=== PATIENT | female | born 1955 | race African-American/Black ===

== ENCOUNTER 2016-09-21 16:09 | Emergency (ER) | payer MEDICARE ==
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
[2016-09-21 17:38] VITALS: BP 120/70
== END 2016-09-21 17:51 | disposition home or self-care (01) ==
LOC: JP.ED 16:09
DX: R07.89 Other chest pain (principal); R42 Dizziness and giddiness; I10 Essential (primary) hypertension; J45.909 Unspecified asthma, uncomplicated; K21.9 Gastro-esophageal reflux disease without esophagitis; F41.9 Anxiety disorder, unspecified; E03.9 Hypothyroidism, unspecified; Z90.49 Acquired absence of other specified parts of digestive tract; Z90.710 Acquired absence of both cervix and uterus; Z79.899 Other long term (current) drug therapy; Z91.010 Allergy to peanuts; Z88.1 Allergy status to other antibiotic agents
CPT/HCPCS: 36415; 80053; 84484; 85025; 93005; 93010; 99284; 99285-25

== ENCOUNTER 2017-09-25 12:24 | Emergency (ER) | payer OTHER ==
[2017-09-25 12:40] VITALS: BP 159/96
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
== END 2017-09-25 13:10 | disposition home or self-care (01) ==
LOC: JP.ED 12:24
DX: K04.7 Periapical abscess without sinus (principal); K02.9 Dental caries, unspecified; I10 Essential (primary) hypertension; E03.9 Hypothyroidism, unspecified; Z88.1 Allergy status to other antibiotic agents; Z91.010 Allergy to peanuts; Z79.899 Other long term (current) drug therapy; Z87.891 Personal history of nicotine dependence
CPT/HCPCS: 99283

== ENCOUNTER 2017-12-24 12:16 | Observation (INO) | payer OTHER ==
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
[2017-12-24] MEDS ORDERED: Albuterol 0.083% 2.5 MG/3 ML Neb Soln NEB ONE (14:53)
[2017-12-24] MEDS ORDERED: Iopamidol 612 MG/ML 100 ML Bottle IV PRN (15:58)
[2017-12-24] MEDS ORDERED: Sodium Chloride 0.9% 10 ML Syringe FLUSH SCH (16:00)
[2017-12-24] MEDS ORDERED: methylPREDNISolone Sodium Succinate 125 MG/2 ML SDV IVPUSH ONE (18:18)
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
[2017-12-24] MEDS ORDERED: Acetaminophen/HYDROcodone 325-10 MG Tab PO PRN (19:40)
[2017-12-24] MEDS ORDERED: Acetaminophen 325 MG Tab PO PRN (19:40)
[2017-12-24] MEDS ORDERED: Ondansetron 4 MG/2 ML SDV IV PRN (19:40)
[2017-12-24] MEDS ORDERED: Sodium Chloride 0.9% 10 ML Syringe FLUSH PRN (19:40)
[2017-12-24] MEDS ORDERED: THEOPHYLLINE 400 MG PO SCH (19:40)
[2017-12-24] MEDS ORDERED: Albuterol 8 GM Inhaler INH PRN (19:40)
[2017-12-24] MEDS ORDERED: Albuterol 0.083% 2.5 MG/3 ML Neb Soln NEB PRN (19:40)
[2017-12-24] MEDS ORDERED: Levofloxacin/Dextrose 5%-Water 750 MG in Premix Bag 1 BAG IV SCH (20:00)
[2017-12-24] MEDS: Pantoprazole 40 MG Tab.CR PO SCH (20:17)
[2017-12-24] MEDS: Sodium Chloride 0.9% 1,000 ML IV SCH (20:17)
[2017-12-24] MEDS: ClonazePAM 0.5 MG Tab PO SCH (20:17)
[2017-12-24] MEDS: Cetirizine 10 MG Tab PO SCH (20:17)
[2017-12-24] MEDS: Lidocaine 5% 700 MG Patch TOP SCH (20:19)
[2017-12-24] MEDS: Losartan 50 MG Tab PO SCH (20:20)
[2017-12-24] MEDS: rOPINIRole 1 MG Tab PO SCH (21:08)
[2017-12-24] MEDS: Montelukast 10 MG Tab PO SCH (21:08)
[2017-12-24] MEDS: traZODone 50 MG Tab PO SCH (21:08)
[2017-12-24] MEDS: methylPREDNISolone Sodium Succinate 40 MG/1 ML SDV IVPUSH SCH (23:14)
[2017-12-25] MEDS: Sodium Chloride 0.9% 1,000 ML IV SCH (05:35)
[2017-12-25] MEDS ORDERED: Levothyroxine 50 MCG Tab PO SCH (07:30)
--- NOTE | 2017-12-25 08:28 | CR ---
CHEST: 2 view CLINICAL HISTORY:Hemoptysis COMPARISON:2016 FINDINGS: There is patchy density in the right lower lobe. Some of this is present on the prior stud y from 2016. There is mild fullness of the right hilum also unchanged from prior study. No effusion o r pneumothorax is seen. There are atherosclerotic changes in the aorta.. IMPRESSION: Patchy right lower lobe airspace disease similar to 2016. This may represent scarring an d atelectasis. Recurrent infiltrate is not excluded
[2017-12-25] MEDS: Sertraline 50 MG Tab PO SCH (08:45)
[2017-12-25] MEDS: Spironolactone 25 MG Tab PO SCH (08:45)
[2017-12-25] MEDS: Losartan 50 MG Tab PO SCH ×2 (08:45→22:09)
[2017-12-25] MEDS: Theophylline 100 MG Cap.ER PO SCH ×2 (08:45→22:14)
[2017-12-25] MEDS: Cetirizine 10 MG Tab PO SCH (08:45)
[2017-12-25] MEDS: Theophylline 300 MG Tab.ER PO SCH ×2 (08:45→22:15)
[2017-12-25] MEDS: methylPREDNISolone Sodium Succinate 40 MG/1 ML SDV IVPUSH SCH ×3 (08:46→22:14)
[2017-12-25] MEDS: Levothyroxine 100 MCG, Levothyroxine 25 MCG PO SCH ×2 (08:46)
[2017-12-25] MEDS: REMOVE LIDOCAINE TRDERM SCH (08:57)
[2017-12-25] MEDS: ClonazePAM 0.5 MG Tab PO SCH (08:57)
--- NOTE | 2017-12-25 13:06 | PCM.PN ---
- General Info Date of Service: 12/25/17 Admission Dx/Problem (Free Text): RT lung pneumonia Subjective Update: Pt c/o of being tired and short of breath but states that she feels she has improved since admit. Pt states coughing is less and has less difficulty breathing. Pt remains afebrile and is not using supplemental O2 at this time. Pt is up in chair and has moved about her room but has not been up ambulating in the white. Functional Status: Reports: Pain Controlled, Tolerating Diet Pain Score: 0 - Review of Systems General: Reports: Weakness, Fatigue. Denies: Fever, Chills HEENT: Reports: No Symptoms Pulmonary: Reports: Shortness of Breath, Cough Cardiovascular: Reports: No Symptoms Gastrointestinal: Reports: No Symptoms Genitourinary: Reports: No Symptoms Musculoskeletal: Reports: No Symptoms Skin: Reports: No Symptoms Neurological: Reports: No Symptoms Psychiatric: Reports: No Symptoms - Patient Data Vitals - Most Recent: Last Vital Signs Temp 35.6 C 12/25/17 11:00 Pulse 71 12/25/17 11:00 Resp 18 12/25/17 11:00 BP 166/84 H 12/25/17 11:00 Pulse Ox 93 L 12/25/17 11:00 Weight - Most Recent: 80 kg I&O - Last 24 Hours: Intake & Output 12/24/17 12/25/17 12/25/17 22:59 06:59 14:59 Intake Total 1104 Output Total 138 541 0617 Balance -225 704 -1000 Lab Results Last 24 Hours: Laboratory Results - last 24 hr 12/24/17 12/24/17 12/24/17 Range/Units 14:56 14:56 15:13 WBC 7.8 (4.5-11.0) K/uL RBC 4.76 (3.30-5.50) M/uL Hgb 12.8 (12.0-15.0) g/dL Hct 40.7 (36.0-48.0) % MCV 86 (80-98) fL MCH 27 (27-31) pg MCHC 31 L (32-36) % Plt Count 188 (150-400) K/uL Neut % (Auto) 63 (36-66) % Lymph % (Auto) 29 (24-44) % Jackson % (Auto) 7 H (2-6) % Eos % (Auto) 1 L (2-4) % Baso % (Auto) 0 (0-1) % Sodium 143 (140-148) mmol/L Potassium 3.7 (3.6-5.2) mmol/L Chloride 104 (100-108) mmol/L Carbon Dioxide 30 (21-32) mmol/L Anion Gap 9.0 (5.0-14.0) mmol/L BUN 9 (7-18) mg/dL Creatinine 1.1 H (0.6-1.0) mg/dL Est Cr Clr Drug Dosing 41.40 mL/min Estimated GFR (MDRD) > 60 (>60) Glucose 90 (74-106) mg/dL Calcium 9.1 (8.5-10.1) mg/dL Total Bilirubin 0.4 (0.2-1.0) mg/dL AST 26 (15-37) U/L ALT 50 (12-78) U/L Alkaline Phosphatase 96 (46-116) U/L C-Reactive Protein 4.99 H (0.0-0.3) mg/dL Total Protein 7.7 (6.4-8.2) g/dL Albumin 3.4 (3.4-5.0) g/dL Globulin 4.3 H (2.3-3.5) g/dL Albumin/Globulin Ratio 0.8 L (1.2-2.2) Urine Color Urine Appearance Urine pH (4.5-8.0) Ur Specific P[place]all (1.008-1.030) Urine Protein (NEGATIVE) mg/dL Urine Glucose (UA) (NEGATIVE) mg/dL Urine Ketones (NEGATIVE) mg/dL Urine Occult Blood (NEGATIVE) Urine Nitrite (NEGATIVE) Urine Bilirubin (NEGATIVE) Urine Urobilinogen (NORMAL) mg/dL Ur Leukocyte Esterase (NEGATIVE) Urine RBC (0-5) Urine WBC (0-5) Ur Epithelial Cells Amorphous Sediment Urine Bacteria Urine Mucus Theophylline (10-20.0) ug/mL 12/24/17 12/25/17 12/25/17 Range/Units 20:10 05:00 05:00 WBC 5.8 (4.5-11.0) K/uL RBC 4.81 (3.30-5.50) M/uL Hgb 13.1 (12.0-15.0) g/dL Hct 41.1 (36.0-48.0) % MCV 85 (80-98) fL MCH 27 (27-31) pg MCHC 32 (32-36) % Plt Count 193 (150-400) K/uL Neut % (Auto) 87 H (36-66) % Lymph % (Auto) 13 L (24-44) % Jackson % (Auto) 1 L (2-6) % Eos % (Auto) 0 L (2-4) % Baso % (Auto) 0 (0-1) % Sodium 144 (140-148) mmol/L Potassium 3.9 (3.6-5.2) mmol/L Chloride 108 (100-108) mmol/L Carbon Dioxide 26 (21-32) mmol/L Anion Gap 9.6 (5.0-14.0) mmol/L BUN 10 (7-18) mg/dL Creatinine 1.1 H (0.6-1.0) mg/dL Est Cr Clr Drug Dosing 41.40 mL/min Estimated GFR (MDRD) > 60 (>60) Glucose 153 H (74-106) mg/dL Calcium 9.6 (8.5-10.1) mg/dL Total Bilirubin (0.2-1.0) mg/dL AST (15-37) U/L ALT (12-78) U/L Alkaline Phosphatase (46-116) U/L C-Reactive Protein (0.0-0.3) mg/dL Total Protein (6.4-8.2) g/dL Albumin (3.4-5.0) g/dL Globulin (2.3-3.5) g/dL Albumin/Globulin Ratio (1.2-2.2) Urine Color Yellow Urine Appearance Clear Urine pH 5.0 (4.5-8.0) Ur Specific [place] 1.005 L (1.008-1.030) Urine Protein Negative (NEGATIVE) mg/dL Urine Glucose (UA) Normal (NEGATIVE) mg/dL Urine Ketones Negative (NEGATIVE) mg/dL Urine Occult Blood Negative (NEGATIVE) Urine Nitrite Negative (NEGATIVE) Urine Bilirubin Small (NEGATIVE) Urine Urobilinogen 1 (NORMAL) mg/dL Ur Leukocyte Esterase Moderate (NEGATIVE) Urine RBC 0-5 (0-5) Urine WBC 0-5 (0-5) Ur Epithelial Cells Rare Amorphous Sediment Not seen Urine Bacteria Not seen Urine Mucus Not seen Theophylline 2.0 L (10-20.0) ug/mL Brian Results Last 24 Hours: Microbiology 12/24/17 16:50 Gram Stain - Final Nasopharynx, Unspecified Med Orders - Current: Current Medications Acetaminophen (Tylenol) 650 mg PO Q4H PRN PRN Reason: Pain (Mild 1-3)/fever Last Admin: 12/25/17 07:53 Dose: 650 mg Hydrocodone Bitart/Acetaminophen (Blackwell 325-10 Mg) 1 tab PO Q4H PRN PRN Reason: Pain Albuterol (Ventolin Hfa) 0 gm INH Q4H PRN PRN Reason: Shortness of Breath Albuterol (Proventil Neb Soln) 2.5 mg NEB Q4H PRN PRN Reason: Shortness Of Breath/wheezing Last Admin: 12/24/17 20:30 Dose: 2.5 mg Cetirizine HCl (Zyrtec) 10 mg PO DAILY [facility] Last Admin: 12/25/17 08:45 Dose: 10 mg Clonazepam (Klonopin) 0.5 mg PO BID [facility] Last Admin: 12/25/17 08:57 Dose: 0.5 mg Sodium Chloride (Normal Saline) 1,000 mls @ 125 mls/hr IV ASDIRECTED [facility] Last Admin: 12/25/17 05:35 Dose: 125 mls/hr Levofloxacin/Dextrose 750 mg/ (Premix) 150 mls @ 100 mls/hr IV Q24H [facility] Levothyroxine Sodium 100 mcg/ (Levothyroxine Sodium 25 mcg) 125 mcg PO ACBREAKFAST [facility] Last Admin: 12/25/17 08:46 Dose: 125 mcg Lidocaine (Lidoderm 5%) 700 mg TOP Q24H [facility] Last Admin: 12/24/17 20:19 Dose: 700 mg Losartan Potassium (Cozaar) 50 mg PO BID [facility] Last Admin: 12/25/17 08:45 Dose: 50 mg Methylprednisolone Sodium Succinate (Solu-Medrol) 40 mg IVPUSH Q8H [facility] Last Admin: 12/25/17 08:46 Dose: 40 mg Miscellaneous Information (Remove Patch) 1 ea TRDERM Q24H [facility] Last Admin: 12/25/17 08:57 Dose: Not Given Montelukast Sodium (Singulair) 10 mg PO BEDTIME [facility] Last Admin: 12/24/17 21:08 Dose: 10 mg Ondansetron HCl (Zofran) 4 mg IV Q4H PRN PRN Reason: Nausea/Vomiting Pantoprazole Sodium (Protonix) 40 mg PO BEDTIME [facility] Last Admin: 12/24/17 20:17 Dose: 40 mg Ropinirole HCl (Requip) 2 mg PO BEDTIME [facility] Last Admin: 12/24/17 21:08 Dose: 2 mg Sertraline HCl (Zoloft) 100 mg PO DAILY [facility] Last Admin: 12/25/17 08:45 Dose: 100 mg Sodium Chloride (Saline Flush) 10 ml FLUSH ASDIRECTED PRN PRN Reason: Keep Vein Open Spironolactone (Aldactone) 25 mg PO DAILY [facility] Last Admin: 12/25/17 08:45 Dose: 25 mg Theophylline (Theophylline Anhydrous) 300 mg PO Q12H [facility] Last Admin: 12/25/17 08:45 Dose: 300 mg Theophylline (Tor-24) 100 mg PO Q12H [facility] Last Admin: 12/25/17 08:45 Dose: 100 mg Trazodone HCl (Trazodone) 200 mg PO BEDTIME [facility] Last Admin: 12/24/17 21:08 Dose: 200 mg Discontinued Medications Albuterol (Proventil Neb Soln) 2.5 mg NEB ONETIME ONE Stop: 12/24/17 14:54 Last Admin: 12/24/17 15:03 Dose: 2.5 mg Sodium Chloride (Normal Saline) 70 mls @ 3 mls/sec IV ASDIRECTED [facility] Stop: 12/24/17 16:01 Last Admin: 12/24/17 16:32 Dose: 3 mls/sec Levofloxacin/Dextrose 750 mg/ (Premix) 150 mls @ 100 mls/hr IV Q48H [facility] Last Admin: 12/24/17 19:03 Dose: 100 mls/hr Iopamidol (Isovue-300 (61%)) 100 ml IV . DIRECTED PRN PRN Reason: RADIOLOGY EXAM Stop: 12/24/17 15:59 Last Admin: 12/24/17 16:32 Dose: 100 ml Levothyroxine Sodium (Synthroid) 125 mcg PO ACBRK [facility] Methylprednisolone Sodium Succinate (Solu-Medrol) 125 mg IVPUSH ONETIME ONE Stop: 12/24/17 18:19 Last Admin: 12/24/17 18:55 Dose: 125 mg Non-Formulary Medication (Theophylline [Theophylline]) 400 mg PO Q12H [facility] Last Admin: 12/25/17 11:33 Dose: Not Given Sodium Chloride (Saline Flush) 10 ml FLUSH ONETIME [facility] Stop: 12/24/17 16:01 Last Admin: 12/24/17 16:31 Dose: 10 ml Trazodone HCl (Trazodone Hcl) 200 mg PO BEDTIME [facility] - Exam General: Alert, Oriented, Cooperative, No Acute Distress Lungs: Decreased Breath Sounds Cardiovascular: Regular Rate, No Murmurs GI/Abdominal Exam: Normal Bowel Sounds, Soft, Non-Tender, No Distention Skin: Warm, Dry, Intact Psy/Mental Status: Alert, Normal Affect - Problem List Review Problem List Initiated/Reviewed/Updated: Yes - Plan Plan:: ASSESSMENT AND PLAN RIGHT LUNG PNEUMONIA-small infiltrate identified on CT scan of the chest, associated with borderline hypoxia and hemoptysis. -Supplemental oxygen as needed -Nebulized albuterol -Blood and sputum cultures pending -Solu-Medrol 40 mg IV every 8 hours -Levofloxacin 750 mg IV every 24 hours SPLENIC LESIONS-areas in the spleen identified on CT scan, review spleen noted on previous CT scan approximately a year and a half ago. -Will require further evaluation but can be obtained on an outpatient basis after pneumonia has resolved -Previous CT scan requested for radiologist to review MAINTENANCE ISSUES -DVT prophylaxis; SCUDs, hold on anticoagulation because of hemoptysis -GI prophylaxis; continue outpatient PPI therapy -Obando catheter; not indicated -Nutrition; regular diet -Nicotine dependence; not required CODE STATUS-FULL CODE ADMISSION STATUS-this patient will be admitted to observation status, expect no more than a one night hospital stay for evaluation and management of problems as outlined above. DISPOSITION-anticipate discharge to home after the hospital stay. PRIMARY CARE PROVIDER-Sammie Payne
--- NOTE | 2017-12-25 14:22 | PCM.PN ---
- General Info Date of Service: 12/25/17 Subjective Update: This patient has felt improved over the past 18 hours since admission with less shortness of breath and cough. Continues to have some intermittent wheezing, no further episodes of hemoptysis. She currently is on room air, not requiring supplemental oxygen. Vital signs have been stable and she has remained afebrile. Functional Status: Reports: Tolerating Diet, Urinating - Review of Systems General: Reports: Weakness. Denies: Fever, Chills Pulmonary: Reports: Shortness of Breath, Cough, Wheezing. Denies: Pleuritic Chest Pain, Sputum, Hemoptysis Cardiovascular: Reports: Dyspnea on Exertion. Denies: Chest Pain, Palpitations , Orthopnea, PND Gastrointestinal: Reports: No Symptoms - Patient Data Vitals - Most Recent: Last Vital Signs Temp 96.0 F 12/25/17 11:00 Pulse 71 12/25/17 11:00 Resp 18 12/25/17 11:00 BP 166/84 H 12/25/17 11:00 Pulse Ox 93 L 12/25/17 11:00 Weight - Most Recent: 176 lb 5.917 oz I&O - Last 24 Hours: Intake & Output 12/24/17 12/25/17 12/25/17 22:59 06:59 14:59 Intake Total 1104 840 Output Total 654 879 2539 Balance -225 704 -160 Lab Results Last 24 Hours: Laboratory Results - last 24 hr 12/24/17 12/24/17 12/24/17 Range/Units 14:56 14:56 15:13 WBC 7.8 (4.5-11.0) K/uL RBC 4.76 (3.30-5.50) M/uL Hgb 12.8 (12.0-15.0) g/dL Hct 40.7 (36.0-48.0) % MCV 86 (80-98) fL MCH 27 (27-31) pg MCHC 31 L (32-36) % Plt Count 188 (150-400) K/uL Neut % (Auto) 63 (36-66) % Lymph % (Auto) 29 (24-44) % Villalba % (Auto) 7 H (2-6) % Eos % (Auto) 1 L (2-4) % Baso % (Auto) 0 (0-1) % Sodium 143 (140-148) mmol/L Potassium 3.7 (3.6-5.2) mmol/L Chloride 104 (100-108) mmol/L Carbon Dioxide 30 (21-32) mmol/L Anion Gap 9.0 (5.0-14.0) mmol/L BUN 9 (7-18) mg/dL Creatinine 1.1 H (0.6-1.0) mg/dL Est Cr Clr Drug Dosing 41.40 mL/min Estimated GFR (MDRD) > 60 (>60) Glucose 90 (74-106) mg/dL Calcium 9.1 (8.5-10.1) mg/dL Total Bilirubin 0.4 (0.2-1.0) mg/dL AST 26 (15-37) U/L ALT 50 (12-78) U/L Alkaline Phosphatase 96 (46-116) U/L C-Reactive Protein 4.99 H (0.0-0.3) mg/dL Total Protein 7.7 (6.4-8.2) g/dL Albumin 3.4 (3.4-5.0) g/dL Globulin 4.3 H (2.3-3.5) g/dL Albumin/Globulin Ratio 0.8 L (1.2-2.2) Urine Color Urine Appearance Urine pH (4.5-8.0) Ur Specific [place] (1.008-1.030) Urine Protein (NEGATIVE) mg/dL Urine Glucose (UA) (NEGATIVE) mg/dL Urine Ketones (NEGATIVE) mg/dL Urine Occult Blood (NEGATIVE) Urine Nitrite (NEGATIVE) Urine Bilirubin (NEGATIVE) Urine Urobilinogen (NORMAL) mg/dL Ur Leukocyte Esterase (NEGATIVE) Urine RBC (0-5) Urine WBC (0-5) Ur Epithelial Cells Amorphous Sediment Urine Bacteria Urine Mucus Theophylline (10-20.0) ug/mL 12/24/17 12/25/17 12/25/17 Range/Units 20:10 05:00 05:00 WBC 5.8 (4.5-11.0) K/uL RBC 4.81 (3.30-5.50) M/uL Hgb 13.1 (12.0-15.0) g/dL Hct 41.1 (36.0-48.0) % MCV 85 (80-98) fL MCH 27 (27-31) pg MCHC 32 (32-36) % Plt Count 193 (150-400) K/uL Neut % (Auto) 87 H (36-66) % Lymph % (Auto) 13 L (24-44) % Villalba % (Auto) 1 L (2-6) % Eos % (Auto) 0 L (2-4) % Baso % (Auto) 0 (0-1) % Sodium 144 (140-148) mmol/L Potassium 3.9 (3.6-5.2) mmol/L Chloride 108 (100-108) mmol/L Carbon Dioxide 26 (21-32) mmol/L Anion Gap 9.6 (5.0-14.0) mmol/L BUN 10 (7-18) mg/dL Creatinine 1.1 H (0.6-1.0) mg/dL Est Cr Clr Drug Dosing 41.40 mL/min Estimated GFR (MDRD) > 60 (>60) Glucose 153 H (74-106) mg/dL Calcium 9.6 (8.5-10.1) mg/dL Total Bilirubin (0.2-1.0) mg/dL AST (15-37) U/L ALT (12-78) U/L Alkaline Phosphatase (46-116) U/L C-Reactive Protein (0.0-0.3) mg/dL Total Protein (6.4-8.2) g/dL Albumin (3.4-5.0) g/dL Globulin (2.3-3.5) g/dL Albumin/Globulin Ratio (1.2-2.2) Urine Color Yellow Urine Appearance Clear Urine pH 5.0 (4.5-8.0) Ur Specific [place] 1.005 L (1.008-1.030) Urine Protein Negative (NEGATIVE) mg/dL Urine Glucose (UA) Normal (NEGATIVE) mg/dL Urine Ketones Negative (NEGATIVE) mg/dL Urine Occult Blood Negative (NEGATIVE) Urine Nitrite Negative (NEGATIVE) Urine Bilirubin Small (NEGATIVE) Urine Urobilinogen 1 (NORMAL) mg/dL Ur Leukocyte Esterase Moderate (NEGATIVE) Urine RBC 0-5 (0-5) Urine WBC 0-5 (0-5) Ur Epithelial Cells Rare Amorphous Sediment Not seen Urine Bacteria Not seen Urine Mucus Not seen Theophylline 2.0 L (10-20.0) ug/mL Brian Results Last 24 Hours: Microbiology 12/24/17 16:50 Gram Stain - Final Nasopharynx, Unspecified Med Orders - Current: Current Medications Acetaminophen (Tylenol) 650 mg PO Q4H PRN PRN Reason: Pain (Mild 1-3)/fever Last Admin: 12/25/17 07:53 Dose: 650 mg Hydrocodone Bitart/Acetaminophen ([place] 325-10 Mg) 1 tab PO Q4H PRN PRN Reason: Pain Last Admin: 12/25/17 13:43 Dose: 1 tab Albuterol (Ventolin Hfa) 0 gm INH Q4H PRN PRN Reason: Shortness of Breath Albuterol (Proventil Neb Soln) 2.5 mg NEB Q4H PRN PRN Reason: Shortness Of Breath/wheezing Last Admin: 12/24/17 20:30 Dose: 2.5 mg Cetirizine HCl (Zyrtec) 10 mg PO DAILY [facility] Last Admin: 12/25/17 08:45 Dose: 10 mg Clonazepam (Klonopin) 0.5 mg PO BID [facility] Last Admin: 12/25/17 08:57 Dose: 0.5 mg Levofloxacin/Dextrose 750 mg/ (Premix) 150 mls @ 100 mls/hr IV Q24H [facility] Levothyroxine Sodium 100 mcg/ (Levothyroxine Sodium 25 mcg) 125 mcg PO ACBREAKFAST [facility] Last Admin: 12/25/17 08:46 Dose: 125 mcg Lidocaine (Lidoderm 5%) 700 mg TOP Q24H [facility] Last Admin: 12/24/17 20:19 Dose: 700 mg Losartan Potassium (Cozaar) 50 mg PO BID [facility] Last Admin: 12/25/17 08:45 Dose: 50 mg Methylprednisolone Sodium Succinate (Solu-Medrol) 40 mg IVPUSH Q8H [facility] Last Admin: 12/25/17 08:46 Dose: 40 mg Miscellaneous Information (Remove Patch) 1 ea TRDERM Q24H [facility] Last Admin: 12/25/17 08:57 Dose: Not Given Montelukast Sodium (Singulair) 10 mg PO BEDTIME [facility] Last Admin: 12/24/17 21:08 Dose: 10 mg Ondansetron HCl (Zofran) 4 mg IV Q4H PRN PRN Reason: Nausea/Vomiting Pantoprazole Sodium (Protonix) 40 mg PO BEDTIME [facility] Last Admin: 12/24/17 20:17 Dose: 40 mg Ropinirole HCl (Requip) 2 mg PO BEDTIME [facility] Last Admin: 12/24/17 21:08 Dose: 2 mg Sertraline HCl (Zoloft) 100 mg PO DAILY [facility] Last Admin: 12/25/17 08:45 Dose: 100 mg Sodium Chloride (Saline Flush) 10 ml FLUSH ASDIRECTED PRN PRN Reason: Keep Vein Open Spironolactone (Aldactone) 25 mg PO DAILY [facility] Last Admin: 12/25/17 08:45 Dose: 25 mg Theophylline (Theophylline Anhydrous) 300 mg PO Q12H [facility] Last Admin: 12/25/17 08:45 Dose: 300 mg Theophylline (Tor-24) 100 mg PO Q12H [facility] Last Admin: 12/25/17 08:45 Dose: 100 mg Trazodone HCl (Trazodone) 200 mg PO BEDTIME [facility] Last Admin: 12/24/17 21:08 Dose: 200 mg Discontinued Medications Albuterol (Proventil Neb Soln) 2.5 mg NEB ONETIME ONE Stop: 12/24/17 14:54 Last Admin: 12/24/17 15:03 Dose: 2.5 mg Sodium Chloride (Normal Saline) 70 mls @ 3 mls/sec IV ASDIRECTED [facility] Stop: 12/24/17 16:01 Last Admin: 12/24/17 16:32 Dose: 3 mls/sec Levofloxacin/Dextrose 750 mg/ (Premix) 150 mls @ 100 mls/hr IV Q48H [facility] Last Admin: 12/24/17 19:03 Dose: 100 mls/hr Sodium Chloride (Normal Saline) 1,000 mls @ 125 mls/hr IV ASDIRECTED [facility] Last Admin: 12/25/17 05:35 Dose: 125 mls/hr Iopamidol (Isovue-300 (61%)) 100 ml IV . DIRECTED PRN PRN Reason: RADIOLOGY EXAM Stop: 12/24/17 15:59 Last Admin: 12/24/17 16:32 Dose: 100 ml Levothyroxine Sodium (Synthroid) 125 mcg PO ACBRK [facility] Methylprednisolone Sodium Succinate (Solu-Medrol) 125 mg IVPUSH ONETIME ONE Stop: 12/24/17 18:19 Last Admin: 12/24/17 18:55 Dose: 125 mg Non-Formulary Medication (Theophylline [Theophylline]) 400 mg PO Q12H [facility] Last Admin: 12/25/17 11:33 Dose: Not Given Sodium Chloride (Saline Flush) 10 ml FLUSH ONETIME [facility] Stop: 12/24/17 16:01 Last Admin: 12/24/17 16:31 Dose: 10 ml Trazodone HCl (Trazodone Hcl) 200 mg PO BEDTIME [facility] - Exam Quality Assessment: DVT Prophylaxis. No: Supplemental Oxygen General: Alert, Oriented, Cooperative, Mild Distress Lungs: Decreased Breath Sounds. No: Rales, Rhonchi, Rub, Wheezing Cardiovascular: Regular Rate, Regular Rhythm, No Murmurs GI/Abdominal Exam: Soft, Non-Tender, No Organomegaly, No Distention Extremities: Non-Tender, No Pedal Edema Skin: Warm, Dry - Problem List Review Problem List Initiated/Reviewed/Updated: Yes - My Orders Last 24 Hours: My Active Orders 12/24/17 18:41 Blood Culture x2 Reflex Set [OM.PC] Urgent 12/24/17 18:45 Resuscitation Status Routine 12/24/17 18:50 CULTURE BLOOD [BC] Stat 12/24/17 18:55 CULTURE BLOOD [BC] Stat 12/24/17 19:40 Patient Status [ADT] Routine Ambulate [RC] QID Height and Weight [RC] DAILY Intake and Output [RC] QSHIFT Notify Provider Vital Signs [RC] ASDIRECTED Oxygen Therapy [RC] PRN Peripheral IV Care [RC] Q12H RT Aerosol Therapy [RC] ASDIRECTED Up to Chair [RC] QID VTE/DVT Education [RC] Per Unit Routine Vital Signs [RC] Q4H Acetaminophen [Tylenol] 650 mg PO Q4H PRN Acetaminophen/HYDROcodone [[place] 325-10 MG] 1 tab PO Q4H PRN Albuterol [Proventil Neb Soln] 2.5 mg NEB Q4H PRN Albuterol [Ventolin HFA] 0 gm INH Q4H PRN Ondansetron [Zofran] 4 mg IV Q4H PRN Sodium Chloride 0.9% [Saline Flush] 10 ml FLUSH ASDIRECTED PRN Peripheral IV Insertion Adult [OM.PC] Routine Sequential Compression Device [OM.PC] Per Unit Routine VTE Pharmacological Contraindications [AST] Per Unit Routine 12/24/17 20:00 Cetirizine [ZyrTEC] 10 mg PO DAILY Lidocaine 5% [Lidoderm 5%] 700 mg TOP Q24H 12/24/17 21:00 ClonazePAM [KlonoPIN] 0.5 mg PO BID Losartan [Cozaar] 50 mg PO BID Montelukast [Singulair] 10 mg PO BEDTIME Pantoprazole [ProTONIX] 40 mg PO BEDTIME rOPINIRole [Requip] 2 mg PO BEDTIME traZODone 200 mg PO BEDTIME 12/24/17 23:00 methylPREDNISolone Sod Succ [Solu-MEDROL] 40 mg IVPUSH Q8H 12/24/17 Dinner Regular Diet [DIET] 12/25/17 07:30 Levothyroxine [Synthroid] 125 mcg PO ACBREAKFAST 12/25/17 08:00 Remove Patch 1 ea TRDERM Q24H 12/25/17 09:00 Sertraline [Zoloft] 100 mg PO DAILY Spironolactone [Aldactone] 25 mg PO DAILY Theophylline [Tor-24] 100 mg PO Q12H Theophylline [Theophylline Anhydrous] 300 mg PO Q12H 12/25/17 14:13 Convert IV to Saline Lock [OM.PC] Routine 12/25/17 20:00 Levofloxacin/Dextrose 5%-Water [Levaquin in D5W 750 MG/150 ML] 750 mg Premix Bag 1 bag IV Q24H - Plan Plan:: ASSESSMENT AND PLAN RIGHT LUNG PNEUMONIA-small infiltrate identified on CT scan of the chest, cough and dyspnea have improved, no further hemoptysis -Supplemental oxygen as needed -Nebulized albuterol -Blood and sputum cultures pending -Solu-Medrol 40 mg IV every 8 hours -Levofloxacin 750 mg IV every 24 hours SPLENIC LESIONS-areas in the spleen identified on CT scan, review spleen noted on previous CT scan approximately a year and a half ago. -Will require further evaluation but can be obtained on an outpatient basis after pneumonia has resolved -Previous CT scan requested for radiologist to review MAINTENANCE ISSUES -DVT prophylaxis; SCUDs, hold on anticoagulation because of hemoptysis -GI prophylaxis; continue outpatient PPI therapy -[place] catheter; not indicated -Nutrition; regular diet -Nicotine dependence; not required CODE STATUS-FULL CODE ADMISSION STATUS-this patient will be admitted to observation status, expect no more than a one night hospital stay for evaluation and management of problems as outlined above. DISPOSITION-anticipate discharge to home after the hospital stay. PRIMARY CARE PROVIDER-Sammie Payne
[2017-12-25] MEDS ORDERED: ClonazePAM 0.5 MG Tab PO ONE (16:15)
[2017-12-25] MEDS: Gabapentin 400 MG Cap PO SCH ×2 (16:41→22:09)
[2017-12-25] MEDS ORDERED: Levofloxacin/Dextrose 5%-Water 750 MG in Premix Bag 1 BAG IV SCH (20:00)
[2017-12-25] MEDS: Lidocaine 5% 700 MG Patch TOP SCH (20:07)
[2017-12-25] MEDS: traZODone 50 MG Tab PO SCH (22:09)
[2017-12-25] MEDS: rOPINIRole 1 MG Tab PO SCH (22:13)
[2017-12-25] MEDS: Pantoprazole 40 MG Tab.CR PO SCH (22:14)
[2017-12-25] MEDS: Montelukast 10 MG Tab PO SCH (22:14)
[2017-12-26] MEDS: Levothyroxine 100 MCG, Levothyroxine 25 MCG PO SCH ×2 (08:09)
[2017-12-26] MEDS: methylPREDNISolone Sodium Succinate 40 MG/1 ML SDV IVPUSH SCH (08:09)
[2017-12-26] MEDS: REMOVE LIDOCAINE TRDERM SCH (08:15)
[2017-12-26] MEDS: ClonazePAM 0.5 MG Tab PO SCH ×2 (09:37→14:08)
[2017-12-26] MEDS: Spironolactone 25 MG Tab PO SCH (09:38)
[2017-12-26] MEDS: Gabapentin 400 MG Cap PO SCH ×2 (09:38→13:18)
[2017-12-26] MEDS: Theophylline 300 MG Tab.ER PO SCH (09:39)
[2017-12-26] MEDS: Theophylline 100 MG Cap.ER PO SCH (09:39)
[2017-12-26] MEDS: Losartan 50 MG Tab PO SCH (09:39)
[2017-12-26] MEDS: Sertraline 50 MG Tab PO SCH (09:39)
[2017-12-26] MEDS: Cetirizine 10 MG Tab PO SCH (09:40)
--- NOTE | 2017-12-26 12:34 | PCM.DCSUM1 ---
Discharge Summary - Hospital Course HPI Initial Comments: Pt presented thru the ED with a 2-3 day history of worsening hypoxia and SOB Diagnosis: Stroke: No - Discharge Data Discharge Date: 12/26/17 Discharge Disposition: Home, Self-Care 01 Condition: Fair - Discharge Diagnosis/Problem(s) (1) Pneumonia SNOMED Code(s): 905267473 ICD Code: J18.9 - PNEUMONIA, UNSPECIFIED ORGANISM Status: Acute Current Visit: Yes Qualifiers: Laterality: right (2) COPD exacerbation SNOMED Code(s): 367092408 ICD Code: J44.1 - CHRONIC OBSTRUCTIVE PULMONARY DISEASE W (ACUTE) EXACERBATION Status: Acute Current Visit: Yes (3) Hypoxia SNOMED Code(s): 031614542 ICD Code: R09.02 - HYPOXEMIA Status: Acute Current Visit: Yes - Patient Summary/Data Hospital Course: Ms. Jonathan Clemons is a 62-year-old woman who is admitted through the emergency department observation status for further management of pneumonia. States that she's not felt well over the past week with slowly developing cough and upper respiratory tract infection. Over the past 2 days is noted chills with increase in cough sputum production as well as hemoptysis. During this period of time has become progressively more short of breath.because of the hemoptysis and shortness of breath presented to the emergency department for further evaluation and management. On initial assessment was noted to be borderline hypoxic and had bilateral expiratory wheezes. White blood cell count is within normal range and she has not had significant temperature elevation while in the emergency department. She has had ongoing sputum production and staff have noted blood mixed with sputum. Chest x-ray was nondiagnostic so CT scan of the chest was obtained which showed a small infiltrate in the right lung. Also noted to have lesions in her spleen, CT scan was nondiagnostic as to the etiology. Patient reports that she had these noted on a CT scan a year and a half ago but never followed up or had further evaluation. Shortness of breath and cough have improved while in the emergency department after having received nebulizer therapy. Ms. Jonathan Clemons received two days of levofloxacin as well as solumedrol for the treatment of her pneumonia. The patient progressively felt better stating she had a decreased feeling of shortness of breath and a decreased cough during her stay. Her lung sounds improved and pt became more active in her room and up walking in the halls. She will be discharged to home with followup with her primary provider in one week. At that time she should have a chest xray for comparison. Ms. Jonathan Clemons will be sent home with a three day course of levofloxacin and a three day course of prednisone. The patient does not voice concern about her discharge and has been instructed to call/return if she has question or if her symptoms return. - Patient Instructions Diet: Usual Diet as Tolerated Activity: As Tolerated Other/Special Instructions: Take Levofloxacin daily for three days and Prednisone 40mg a day for 3 three days. Take all medication as directed until gone. Follow-up with primary care provider this next week with a chest x-ray at the time of the appointment - Discharge Plan Prescriptions/Med Rec: Levofloxacin [Levaquin] 750 mg PO DAILY #3 tab predniSONE [Prednisone] 40 mg PO DAILY #6 tablet rOPINIRole [Requip] 2 mg PO BEDTIME #30 tablet Home Medications: Home Meds Albuterol [Ventolin HFA] 2 puff INH Q4H PRN 07/04/13 [History] Calcium Carb & Citrate/Vit D3 [Calcium + D3 ER Tablet] 1 each PO DAILY 07/04/13 [History] ClonazePAM [KlonoPIN] 0.5 mg PO BID 07/04/13 [History] Levothyroxine Sodium [Synthroid] 125 mcg PO ACBRK 07/04/13 [History] Losartan [Cozaar] 50 mg PO BID 07/04/13 [History] Omeprazole [Prilosec] 20 mg PO BID 07/04/13 [History] Sertraline [Zoloft] 100 mg PO DAILY 07/04/13 [History] Theophylline 400 mg PO Q12H 07/04/13 [History] Cetirizine HCl [Zyrtec] 10 mg PO DAILY 03/18/16 [History] EPINEPHrine [Epipen] 0.3 mg IM ONETIME 03/18/16 [History] traZODone 200 mg PO BEDTIME 03/18/16 [History] Hydrocodone/Acetaminophen [Hydrocodon-Acetaminophn 10-325] 1 tab PO Q4H PRN [History] Lidocaine 5% [Lidoderm 5%] 700 mg TOP Q24H 09/25/17 [History] Montelukast [Singulair] 10 mg PO BEDTIME 09/25/17 [History] Spironolactone [Aldactone] 25 mg PO DAILY 12/24/17 [History] Gabapentin [Neurontin] 800 mg PO TID 12/25/17 [History] Levofloxacin [Levaquin] 750 mg PO DAILY #3 tab 12/26/17 [Rx] predniSONE [Prednisone] 40 mg PO DAILY #6 tablet 12/26/17 [Rx] rOPINIRole [Requip] 2 mg PO BEDTIME #30 tablet 12/26/17 [Rx] Referrals: Kari Payne PA [Primary Care Provider] - - Discharge Summary/Plan Comment DC Time >30 min.: No - Patient Data Vitals - Most Recent: Last Vital Signs Temp 35.4 C 12/26/17 07:13 Pulse 74 12/26/17 07:13 Resp 20 12/26/17 07:13 BP 149/73 H 12/26/17 09:39 Pulse Ox 90 L 12/26/17 07:13 Weight - Most Recent: 80.649 kg I&O - Last 24 hours: Intake & Output 12/25/17 12/26/17 12/26/17 22:59 06:59 14:59 Intake Total 630 Output Total 250 800 650 Balance 380 -800 -650 WILLIAN Results - Last 24 hrs: Microbiology 12/24/17 16:50 Gram Stain - Final Nasopharynx, Unspecified Respiratory Culture - Preliminary NORMAL RESPIRATORY JERMAN 1 DAY 12/24/17 18:50 Aerobic Blood Culture - Preliminary Blood - Arm, Right NO GROWTH AFTER 1 DAY Anaerobic Blood Culture - Preliminary NO GROWTH AFTER 1 DAY 12/24/17 18:55 Aerobic Blood Culture - Preliminary Blood - Arm, Right NO GROWTH AFTER 1 DAY Anaerobic Blood Culture - Preliminary NO GROWTH AFTER 1 DAY Med Orders - Current: Current Medications Acetaminophen (Tylenol) 650 mg PO Q4H PRN PRN Reason: Pain (Mild 1-3)/fever Last Admin: 12/25/17 07:53 Dose: 650 mg Hydrocodone Bitart/Acetaminophen ([place] 325-10 Mg) 1 tab PO Q4H PRN PRN Reason: Pain Last Admin: 12/25/17 13:43 Dose: 1 tab Albuterol (Ventolin Hfa) 0 gm INH Q4H PRN PRN Reason: Shortness of Breath Albuterol (Proventil Neb Soln) 2.5 mg NEB Q4H PRN PRN Reason: Shortness Of Breath/wheezing Last Admin: 12/24/17 20:30 Dose: 2.5 mg Cetirizine HCl (Zyrtec) 10 mg PO DAILY [facility] Last Admin: 12/26/17 09:40 Dose: 10 mg Clonazepam (Klonopin) 0.5 mg PO BID@0900,1500 [facility] Last Admin: 12/26/17 09:37 Dose: 0.5 mg Gabapentin (Neurontin) 800 mg PO TID [facility] Last Admin: 12/26/17 09:38 Dose: 800 mg Levofloxacin/Dextrose 750 mg/ (Premix) 150 mls @ 100 mls/hr IV Q24H [facility] Last Admin: 12/25/17 20:06 Dose: 100 mls/hr Levothyroxine Sodium 100 mcg/ (Levothyroxine Sodium 25 mcg) 125 mcg PO ACBREAKFAST [facility] Last Admin: 12/26/17 08:09 Dose: 125 mcg Lidocaine (Lidoderm 5%) 700 mg TOP Q24H [facility] Last Admin: 12/25/17 20:07 Dose: 700 mg Losartan Potassium (Cozaar) 50 mg PO BID [facility] Last Admin: 12/26/17 09:39 Dose: 50 mg Methylprednisolone Sodium Succinate (Solu-Medrol) 40 mg IVPUSH Q8H [facility] Last Admin: 12/26/17 08:09 Dose: 40 mg Miscellaneous Information (Remove Patch) 1 ea TRDERM Q24H [facility] Last Admin: 12/26/17 08:15 Dose: Not Given Montelukast Sodium (Singulair) 10 mg PO BEDTIME [facility] Last Admin: 12/25/17 22:14 Dose: 10 mg Ondansetron HCl (Zofran) 4 mg IV Q4H PRN PRN Reason: Nausea/Vomiting Pantoprazole Sodium (Protonix) 40 mg PO BEDTIME [facility] Last Admin: 12/25/17 22:14 Dose: 40 mg Ropinirole HCl (Requip) 2 mg PO BEDTIME [facility] Last Admin: 12/25/17 22:13 Dose: 2 mg Sertraline HCl (Zoloft) 100 mg PO DAILY [facility] Last Admin: 12/26/17 09:39 Dose: 100 mg Sodium Chloride (Saline Flush) 10 ml FLUSH ASDIRECTED PRN PRN Reason: Keep Vein Open Spironolactone (Aldactone) 25 mg PO DAILY [facility] Last Admin: 12/26/17 09:38 Dose: 25 mg Theophylline (Theophylline Anhydrous) 300 mg PO Q12H [facility] Last Admin: 12/26/17 09:39 Dose: 300 mg Theophylline (Tor-24) 100 mg PO Q12H [facility] Last Admin: 12/26/17 09:39 Dose: 100 mg Trazodone HCl (Trazodone) 200 mg PO BEDTIME [facility] Last Admin: 12/25/17 22:09 Dose: 200 mg Discontinued Medications Albuterol (Proventil Neb Soln) 2.5 mg NEB ONETIME ONE Stop: 12/24/17 14:54 Last Admin: 12/24/17 15:03 Dose: 2.5 mg Clonazepam (Klonopin) 0.5 mg PO BID [facility] Last Admin: 12/25/17 08:57 Dose: 0.5 mg Clonazepam (Klonopin) 0.5 mg PO ONETIME ONE Stop: 12/25/17 16:16 Last Admin: 12/25/17 16:41 Dose: 0.5 mg Sodium Chloride (Normal Saline) 70 mls @ 3 mls/sec IV ASDIRECTED [facility] Stop: 12/24/17 16:01 Last Admin: 12/24/17 16:32 Dose: 3 mls/sec Levofloxacin/Dextrose 750 mg/ (Premix) 150 mls @ 100 mls/hr IV Q48H [facility] Last Admin: 12/24/17 19:03 Dose: 100 mls/hr Sodium Chloride (Normal Saline) 1,000 mls @ 125 mls/hr IV ASDIRECTED [facility] Last Admin: 12/25/17 05:35 Dose: 125 mls/hr Iopamidol (Isovue-300 (61%)) 100 ml IV . DIRECTED PRN PRN Reason: RADIOLOGY EXAM Stop: 12/24/17 15:59 Last Admin: 12/24/17 16:32 Dose: 100 ml Levothyroxine Sodium (Synthroid) 125 mcg PO ACBRK [facility] Methylprednisolone Sodium Succinate (Solu-Medrol) 125 mg IVPUSH ONETIME ONE Stop: 12/24/17 18:19 Last Admin: 12/24/17 18:55 Dose: 125 mg Non-Formulary Medication (Theophylline [Theophylline]) 400 mg PO Q12H [facility] Last Admin: 12/25/17 11:33 Dose: Not Given Sodium Chloride (Saline Flush) 10 ml FLUSH ONETIME [facility] Stop: 12/24/17 16:01 Last Admin: 12/24/17 16:31 Dose: 10 ml Trazodone HCl (Trazodone Hcl) 200 mg PO BEDTIME [facility] - Exam General: Reports: Alert, Oriented, Cooperative, No Acute Distress Lungs: Reports: Clear to Auscultation Cardiovascular: Reports: Regular Rate *Q Meaningful Use (DIS) - VTE *Q VTE Pharmacological Contraindications *Q: Active Hemorrhage
[2017-12-26 13:05] VITALS: BP 163/94
== END 2017-12-26 14:16 | disposition home or self-care (01) ==
LOC: JP.ED 12:16 → JP.MS 18:42
PROVIDERS: ADMIT Hospitalist; ATTEND Hospitalist
DX: J18.9 Pneumonia, unspecified organism (principal); J44.1 Chronic obstructive pulmonary disease with (acute) exacerbation; I10 Essential (primary) hypertension; K21.9 Gastro-esophageal reflux disease without esophagitis; E03.9 Hypothyroidism, unspecified; F41.9 Anxiety disorder, unspecified; Z79.899 Other long term (current) drug therapy; Z88.1 Allergy status to other antibiotic agents; Z88.8 Allergy status to other drugs, medicaments and biological substances; Z91.010 Allergy to peanuts; Z91.018 Allergy to other foods
CPT/HCPCS: 36415; 71046; 71260; 80048; 80053; 80198; 81001; 85025; 86140; 87040; 87070; 87205; 94640; 96365; 96375; 96376; 99285; A9270; J1956; J2920; J2930; J7030; J7050; Q9967

== ENCOUNTER 2018-11-22 07:46 | Day surgery (SDC) | payer OTHER ==
[~2018-11-22 07:46] MED LIST: Midazolam 1 MG/ML 2 ML SDV ONE; Propofol 200 MG/20 ML SDV ONE; fentaNYL 100 MCG/2 ML SDV ONE
[2018-11-22] MEDS ORDERED: Sodium Chloride 0.9% 1,000 ML IV SCH (08:00)
[2018-11-22] MEDS ORDERED: Propofol 200 MG/20 ML SDV ONE (09:07)
[2018-11-22 09:58] VITALS: BP 114/72
--- NOTE | 2018-11-22 14:00 | OR ---
DATE OF PROCEDURE: 11/22/2018 SURGEON: Rangel Lee MD PROCEDURE: Colonoscopy. FINDINGS: A 5-mm polyp in the rectum, completely removed using snare. COMPLICATIONS: None. HIGH REACH OPERATOR: None. PREOPERATIVE DIAGNOSIS: Screening colonoscopy. POSTOPERATIVE DIAGNOSIS: Screening colonoscopy. RISKS: Risks, benefits, alternatives, and limitations including, but not limited to infection, bleeding, and perforation were explained to the patient, who wished to proceed. PROCEDURE IN DETAIL: The patient was placed in left lateral decubitus position. Digital rectal exam was performed without abnormality. The scope was introduced atraumatically to the ileocecal valve. A photo was taken. The scope was brought back through the ascending, transverse, descending colon, and retroflexed. The aforementioned polyp was identified and completely removed. No evidence of old or new blood. No masses. No colitis. No abnormalities on retroflex. The patient tolerated the procedure well. Rangel Lee MD /[id number]
== END 2018-11-22 10:14 | disposition home or self-care (01) ==
LOC: JP.SDS 07:46
PROVIDERS: ATTEND Surgery
DX: Z12.11 Encounter for screening for malignant neoplasm of colon (principal); K62.1 Rectal polyp; K21.9 Gastro-esophageal reflux disease without esophagitis; I12.9 Hypertensive chronic kidney disease with stage 1 through stage 4 chronic kidney disease, or unspecified chronic kidney disease; N18.3 Chronic kidney disease, stage 3 (moderate); J45.909 Unspecified asthma, uncomplicated; E03.9 Hypothyroidism, unspecified; E66.01 Morbid (severe) obesity due to excess calories; Z68.32 Body mass index [BMI] 32.0-32.9, adult
CPT/HCPCS: 45385; 88305; J2250; J2704; J3010; J7030